=== PATIENT | female | born 1995 | race African-American/Black ===

== ENCOUNTER 2016-04-27 10:36 | Emergency (ER) | payer MEDICAID ==
[~2016-04-27 10:36] MED LIST: FERR300S PO; PREN0.01 PO
--- NOTE | 2016-04-27 11:11 | PD ---
HPI Chief Complaint Abdominal pain Date Seen: Apr 27, 2016 Time Seen: 11:06 (Kishor Bruner MD R2) Travel History International Travel<30 Days: No Contact w/Intl Traveler<30Days: No Known Affected Area: No (Kishor Bruner MD R2) History of Present Illness HPI 20 G1 at 35.4 weeks gestational age and ROSEY of 05/28/16 presents with one-day history of lower pelvic pain. She states all yesterday she had constant 6 out of 10 pelvic pain which never let up. Nonradiating. Moving makes the pain worse. This pain is constant and does not go away. Last night she was able to get some sleep, but woke up this morning with the same pain and this is why she presents to triage. Denies trauma. No dysuria. No hematuria. No nausea, vomiting, diarrhea, constipation. Her bowel movements been normal. No fever, no chills, no sick contacts. Para: 0 : 1 (Kishor Bruner MD R2) History Past Medical History Narrative Medical Anemia Medical History: Denies Significant Hx (Kishor Bruner MD R2) Obstetric History Obstetric History First (Kishor Bruner MD R2) Past Surgical History Surgical History: No Previous Surgery (Kishor Bruner MD R2) Family History Family History: Negative (Kishor Bruner MD R2) Social History Alcohol Use: No Tobacco Use: No Substance Abuse: No (Kishor Bruner MD R2) Allergies-Medications (Allergen,Severity, Reaction): Coded Allergies: No Known Allergies (Verified , 04/22/16) Home Meds Active Scripts Ferrous Sulfate Liq 300 Mg/5 Ml [id number] Mg PO DAILY #150 ML Ref 3 Prov:Cecil Campos MD R1 04/22/16 Vitamins 1 Tab PO DAILY #30 TAB Ref 1 Prov:Cecil Campos MD 10/26/15 Discontinued Scripts Ferrous Sulfate Liq 300 Mg/5 Ml [id number] Mg PO DAILY #150 ML Ref 3 Prov:Cecil Campos MD R1 04/22/16 Ferrous Sulfate Liq 300 Mg/5 Ml [id number] Mg PO DAILY #150 ML Ref 3 Prov:Cecil Campos MD 03/23/16 Physical Exam Narrative GENERAL: Well-nourished, well-developed patient. SKIN: Warm and dry. HEAD: Normocephalic and atraumatic. NECK: Supple, trachea midline. No JVD. CARDIOVASCULAR: Regular rate and rhythm without murmurs, gallops, or rubs. RESPIRATORY: Breath sounds equal bilaterally. No accessory muscle use. ABDOMEN/GI: Abdomen soft, non-tender, bowel sounds present, no rebound, no guarding Cervix: Closed, posterior, membrane intact No contractions FHT's: Category: 1 Baseline: 135 Reactive: Yes with accelerations Variability: Moderate Decels: None EXTREMITIES: No cyanosis or edema. BACK: Nontender without obvious deformity. No CVA tenderness. NEUROLOGICAL: Awake and alert. Motor and sensory grossly within normal limits. Five out of 5 muscle strength in all muscle groups. Normal speech. (Kishor Bruner MD R2) Data Data Vital Signs Reviewed: Yes (Kishor Bruner MD R2) [facility] Medical Record Reviewed: Yes Interpretation(s) 20 G1 at 35.4 presents with 1 day history of lower abdominal/pelvic pain Narrative Course / MDM 20 G1 at 35.4 presents with 1 day history of lower abdominal/pelvic pain 1. Intrauterine Category 1 tracing Continue to monitor 2. Lower abdominal/pelvic pain -Category 1 tracing -Rule out labor. No contractions on monitor. Cervix closed and posterior. -Likely round ligament pain -Obtain UA; if positive, will treat with keflex -Patient encouraged to follow up with OB provider in 48 hours to ensure resolution of symptoms. Daily kick counts -Recommend Tylenol for pain DW: Dr. Coy (Kishor Bruner MD R2) Addendum Remarks Urinalysis culture not indicated Diagnosis is musculoskeletal pain Round ligament pain I rounded on the patient. I rounded with the resident. I reviewed the resident' s assessment and plan of care for this patient. I am in agreement with the plan of care for this patient. (Meena Eldridge MD) Kishor Bruner MD R2 Apr 27, 2016 11:10 Meena Eldridge MD Apr 27, 2016 12:25
[2016-04-27 12:08] LABS: BLOOD, URINE NEG (NEG); COMMENT (UR) CULT NOT INDICATED; CULTURE IF INDICATED CULT NOT INDICATED; GLUCOSE,URINE NEG (NEG); KETONE, URINE NEG (NEG); MUCUS URINE FEW /lpf (OCC); NITRITE,URINE NEG (NEG); PH, URINE 6.5 (5.0-8.5); SQUAMOUS EPITHELIAL CELL URINE 1 /hpf (0-5); URINE COLOR YELLOW (YELLW/STRAW)
[2016-04-29] MEDS ORDERED: FERR325T PO ×2 (14:46→14:50)
[2016-04-29] MEDS ORDERED: FERR300S PO ×2 (14:46→14:50)
[2016-06-07] MEDS ORDERED: MEDR150I9 IM (10:10)
[2016-06-11] MEDS ORDERED: DEPO150I IM (11:21)
[2016-07-22] MEDS ORDERED: IBUP-232 PO (09:23)
[2016-07-22] MEDS ORDERED: DEPO150I IM (09:32)
[2016-09-14] MEDS ORDERED: TRAM50TA PO (07:58)
[2016-09-14] MEDS ORDERED: IBUP-232 PO (07:58)
== END 2016-04-27 14:04 | disposition home or self-care (01) ==
LOC: HOBED 10:36
DX: O26.93 Pregnancy related conditions, unspecified, third trimester (principal); R10.2 Pelvic and perineal pain; Z3A.35 35 weeks gestation of pregnancy
CPT/HCPCS: 59025; 81001

== ENCOUNTER 2016-05-25 22:51 | Emergency (ER) | payer MEDICAID ==
[~2016-05-25 22:51] MED LIST changes: -FERR300S PO; +FERR325T PO
--- NOTE | 2016-05-25 23:00 | PD ---
HPI Chief Complaint Contractions Date Seen: May 25, 2016 Travel History International Travel<30 Days: No Contact w/Intl Traveler<30Days: No History of Present Illness HPI Ms. Carrillo is a 20 yo G[address] Campos at an estimated 39 4/7 weeks (ROSEY 05/28/2016) who presents with lower abdominal pain. Patient reports that abdominal pain started earlier this afternoon, and gradually increased in severity. Patient describes pain as constant in nature, but intermittently worsening. Patient denies other symptoms. Patient reports minimal dysuria, chronic mild shortness of breath term . No fever or chills, no reported urgency, no nausea/vomiting, no leg asymmetry, no chest pain. Patient reports normal movement. Patient reports uncomplicated , and that she currently just takes vitamins and iron supplementation at this time. Per review of records, patient is GBS positive. Patient has history of chlamydia but had negative test of cure after treatment. Patient's last ultrasound was unremarkable. Para: 0 : 1 History Past Medical History Narrative Medical Anemia during Chlamydia-treated, [facility] negative GBS+ Obstetric History Obstetric History G1 Past Surgical History Surgical History: No Previous Surgery Family History Family History: Negative Social History Alcohol Use: No Tobacco Use: No Substance Abuse: No Allergies-Medications (Allergen,Severity, Reaction): Coded Allergies: No Known Allergies (Verified , 05/25/16) Home Meds Active Scripts Ferrous Sulfate 325 Mg [id number] Mg PO DAILY #60 TAB Ref 1 Prov:Cecil Campos MD R1 04/29/16 Multivit/Min/Fol Ac/Iron/Pren ( Vit ( Plus)) Tab1 Tab PO DAILY #30 TAB Ref 1 Prov:Cecil Campos MD R1 10/26/15 Review of Systems General / Constitutional: No: Fever, Chills HENT: No: Headaches Cardiovascular: No: Chest Pain or Discomfort Respiratory: Short of Breath (chronic during ) Gastrointestinal: No: Nausea, Vomiting Genitourinary: No: Urgency Physical Exam Heart rate 83 Blood pressure 117/64 Respiratory rate 18 Temperature 98.4 Narrative GENERAL: Well-nourished, well-developed patient. SKIN: Warm and dry. HEAD: Normocephalic and atraumatic. EYES: No scleral icterus. No injection or drainage. ENT: No nasal drainage noted. Mucous membranes pink. Airway patent. NECK: Supple, trachea midline. No JVD. CARDIOVASCULAR: Regular rate and rhythm without murmurs, gallops, or rubs. RESPIRATORY: Breath sounds equal bilaterally. No accessory muscle use. BREASTS: Bilateral exam showed no masses , no retractions, no nipple discharge. ABDOMEN/GI: Abdomen soft, non-tender, bowel sounds present, no rebound, no guarding Gravid EXTREMITIES: No cyanosis or edema. BACK: Nontender without obvious deformity. No CVA tenderness. NEUROLOGICAL: Awake and alert. Motor and sensory grossly within normal limits. Five out of 5 muscle strength in all muscle groups. Normal speech. GENITOURINARY: External Genitalia: intact and normal in appearance Cervix: Dilatation: 1 Effacement: 50% Station: -2 Presentation: V Membranes: Intact Uterine Contractions: irritability/ q2 min FHT's: Category: 1 Baseline: 150 Reactive: Y Variability: Mod Decels: None Data Data Vital Signs Reviewed: Yes [facility] Medical Record Reviewed: Yes Interpretation(s) 1 yo G[address] Campos at an estimated 39 4/7 weeks (ROSEY 05/28/2016) Assessment: -Active contractions -Cervix 1/50%/-2 -Category 1 rhythm -No concern for ROM -Benign PE Plan: -Discharge home for home monitoring of latent phase of labor -Patient counselled to return to OB ED with worsening contractions, ROM, vaginal bleeding, or other concerns Diagnosis Diagnosis: Primary Impression: Pain during labor Disposition: 01 DISCHARGE HOME Condition: Stable Patient Instructions: Abdominal Pain in (ED), Early Labor Signs (ED) Dinh Casanova MD R2 May 25, 2016 23:00
--- NOTE | 2016-05-25 23:25 | PD ---
History of Present Illness Date Seen: May 25, 2016 History of Present Illness Patient is 20-year-old black female at 39 weeks complains of contractions no bleeding or rupture the membranes. heart rate tracing is reactive and she is nicole irregularly. Her cervix is 1 cm 50% effaced -2 station she is not in active labor at this point and will be discharged home to return for increasing pain bleeding or rupture the membranes. This patient is a family practice appropriate patient and was seen by the family law legal assistant Robby Garrett II, MD May 25, 2016 23:25
[2016-05-25] MEDS ORDERED: hydrOXYzine PAMOATE 25 MG CAP PO ONE (23:30)
[2016-06-07] MEDS ORDERED: MEDR150I9 IM (10:10)
[2016-06-11] MEDS ORDERED: DEPO150I IM (11:21)
[2016-07-22] MEDS ORDERED: IBUP-232 PO (09:23)
[2016-07-22] MEDS ORDERED: DEPO150I IM (09:32)
[2016-09-14] MEDS ORDERED: IBUP-232 PO (07:58)
[2016-09-14] MEDS ORDERED: TRAM50TA PO (07:58)
== END 2016-05-26 00:17 | disposition home or self-care (01) ==
LOC: HOBED 22:51
DX: O26.93 Pregnancy related conditions, unspecified, third trimester (principal); R10.30 Lower abdominal pain, unspecified; Z3A.39 39 weeks gestation of pregnancy
CPT/HCPCS: 59025

== ENCOUNTER 2016-05-26 07:45 | Emergency (ER) | payer MEDICAID ==
--- NOTE | 2016-05-26 08:25 | PD ---
HPI Chief Complaint contractions Date Seen: May 26, 2016 Time Seen: 08:25 Travel History International Travel<30 Days: No Contact w/Intl Traveler<30Days: No Known Affected Area: No History of Present Illness HPI 20 year old G1 patient of Dr. Campos at 39/5 weeks gestation with ROSEY of 01/04. She is presenting with contractions that are occurring every 3 to 5 minutes. She rates the pain 10/10. She has no leakage of fluid. She has good movements. No vaginal bleeding. She was here last night as well, and at that time had 1 cm dilation. Compared to last night, she is more painful and uncomfortable today. She reports no significant complications in this . She takes vitamins and iron supplements. She is GBS positive. She had chlamydia in thep ast with negative test of cure after treatment. History Past Medical History Narrative Medical None Obstetric History Obstetric History Anemia during Chlamydia-treated, [facility] negative GBS+ Patient of Dr. Campos Past Surgical History Surgical History: No Previous Surgery Family History Family History: Negative Social History Alcohol Use: No Tobacco Use: No Substance Abuse: No Allergies-Medications (Allergen,Severity, Reaction): Coded Allergies: No Known Allergies (Verified , 05/25/16) Home Meds Active Scripts Ferrous Sulfate 325 Mg [id number] Mg PO DAILY #60 TAB Ref 1 Prov:Cecil Campos MD R1 04/29/16 Multivit/Min/Fol Ac/Iron/Pren ( Vit ( Plus)) Tab1 Tab PO DAILY #30 TAB Ref 1 Prov:Cecil Campos MD R1 10/26/15 Review of Systems Except as stated in HPI: all other systems reviewed are Neg Physical Exam Narrative GENERAL: Uncomfortable in bed SKIN: Warm and dry. HEAD: Normocephalic and atraumatic. EYES: No scleral icterus. No injection or drainage. ENT: No nasal drainage noted. Mucous membranes pink. Airway patent. NECK: Supple, trachea midline. No JVD. CARDIOVASCULAR: Regular rate and rhythm without murmurs, gallops, or rubs. RESPIRATORY: Breath sounds equal bilaterally. No accessory muscle use. ABDOMEN/GI: Abdomen soft, non-tender, bowel sounds present, no rebound, no guarding Gravid to 39 weeks size GENITOURINARY: External Genitalia: intact and normal in appearance Dilatation: 2-3 Effacement: 50 Station: -3 Presentation: [-] Membranes: intact Uterine Contractions: q3mins FHT's: Category: 1 Baseline: 140's Reactive: yes Variability: moderate Decels: none EXTREMITIES: No cyanosis or edema. BACK: Nontender without obvious deformity. No CVA tenderness. NEUROLOGICAL: Awake and alert. Data Data Vital Signs Reviewed: Yes [facility] Medical Record Reviewed: Yes Interpretation(s) 20 yo G1 patient of [address]. Campos at 39 5/7 weeks (ROSEY 05/28/2016) having active contractions, now 2 to 3 cm compared to 1 cm yesterday. Cervix 2-3/50%/-2 - Labor check - Hydration - Monitor EFM Discussed with Henry Alexander MD R2 May 26, 2016 08:25 Vital Signs Reviewed: Yes [facility] Medical Record Reviewed: Yes Interpretation(s) 1 yo G[address] Campos at an estimated 39 4/7 weeks (ROSEY 05/28/2016) Assessment: -Active contractions -Cervix 1/50%/-2 -Category 1 rhythm -No concern for ROM -Benign PE Plan: -Discharge home for home monitoring of latent phase of labor -Patient counselled to return to OB ED with worsening contractions, ROM, vaginal bleeding, or other concerns Diagnosis Diagnosis: Primary Impression: Pain during labor Disposition: 01 DISCHARGE HOME Condition: Stable Patient Instructions: Abdominal Pain in (ED), Early Labor Signs (ED) Dinh Casanova MD R2 May 25, 2016 23:00 <Electronically signed by Dinh Manzano MD R2 Edilberto> 05/25/16 [id number] <Electronically signed by Robby Allred II, MD> 05/26/16 1692 Allergies-Medications (Allergen,Severity, Reaction): Coded Allergies: No Known Allergies (Verified , 05/25/16) Home Meds Active Scripts Ferrous Sulfate 325 Mg [id number] Mg PO DAILY #60 TAB Ref 1 Prov:Cecil Campos MD R1 04/29/16 Multivit/Min/Fol Ac/Iron/Pren ( Vit ( Plus)) Tab1 Tab PO DAILY #30 TAB Ref 1 Prov:Cecil Campos MD R1 10/26/15 Physical Exam Narrative GENERAL: Well-nourished, well-developed patient. SKIN: Warm and dry. HEAD: Normocephalic and atraumatic. EYES: No scleral icterus. No injection or drainage. ENT: No nasal drainage noted. Mucous membranes pink. Airway patent. NECK: Supple, trachea midline. No JVD. CARDIOVASCULAR: Regular rate and rhythm without murmurs, gallops, or rubs. RESPIRATORY: Breath sounds equal bilaterally. No accessory muscle use. BREASTS: Bilateral exam showed no masses , no retractions, no nipple discharge. ABDOMEN/GI: Abdomen soft, non-tender, bowel sounds present, no rebound, no guarding Gravid to [-] weeks size Fundal Height: [-] GENITOURINARY: External Genitalia: intact and normal in appearance BUS glands: [-] Cervix: [-] Dilatation: [-] Effacement: [-] Station: [-] Presentation: [-] Membranes: [intact or ruptured] Uterine Contractions: [-] FHT's: Category: [-] Baseline: [-] Reactive: [-] Variability: [-] Decels: [-] EXTREMITIES: No cyanosis or edema. BACK: Nontender without obvious deformity. No CVA tenderness. NEUROLOGICAL: Awake and alert. Motor and sensory grossly within normal limits. Five out of 5 muscle strength in all muscle groups. Normal speech. Henry Salazar MD R2 May 26, 2016 08:25
[2016-05-26] MEDS ORDERED: MEPERIDINE HCL 50 MG/ML VIAL IM ONE (09:30)
[2016-05-26] MEDS ORDERED: PROMETHAZINE INJ 25 MG/ML VIAL IM ONE (10:00)
[2016-06-07] MEDS ORDERED: MEDR150I9 IM (10:10)
[2016-06-11] MEDS ORDERED: DEPO150I IM (11:21)
[2016-07-22] MEDS ORDERED: IBUP-232 PO (09:23)
[2016-07-22] MEDS ORDERED: DEPO150I IM (09:32)
[2016-09-14] MEDS ORDERED: IBUP-232 PO (07:58)
[2016-09-14] MEDS ORDERED: TRAM50TA PO (07:58)
== END 2016-05-26 10:17 | disposition home or self-care (01) ==
LOC: HOBED 07:45
DX: O62.9 Abnormality of forces of labor, unspecified (principal); Z3A.39 39 weeks gestation of pregnancy
CPT/HCPCS: 96372; J2175; J2550

== ENCOUNTER 2016-05-26 21:37 | Inpatient (IN) | payer MEDICAID ==
--- NOTE | 2016-05-26 22:14 | PD ---
HPI Chief Complaint "Painful CTX q 3 minutes" Date Seen: May 26, 2016 (Rolo Renteria MD R3) Travel History International Travel<30 Days: No Contact w/Intl Traveler<30Days: No (Rolo Renteria MD R3) History of Present Illness HPI 20 year old G1 patient of Dr. Campos at 39/5 weeks gestation with ROSEY of 01/04 who presents to [place] [facility] ED with c/o "painful contractions every 3 minutes." She endorses good movement and denies any loss of fluid, vaginal bleeding, foul-smelling vaginal discharge, chest pain, shortness of breath, fevers, or flank pain. She had presented yesterday evening and again this morning with similar symptoms of painful contractions. Left cervical exam was this morning and her cervix was 2-3/50%/-2. Patient was provided with reassurance, fluid hydration, and discharged to home as she was not yet in active labor. She is GBS positive. She is a history of chlamydia in the past with a reassuring test of care following treatment. (Rolo Renteria MD R3) History Past Medical History Medical History: Denies Significant Hx (Rolo Renteria MD R3) Obstetric History Obstetric History Anemia during Chlamydia-treated, [facility] negative GBS+ Patient of Dr. Campos (Rolo Renteria MD R3) Past Surgical History Surgical History: No Previous Surgery (Rolo Renteria MD R3) Family History Family History: Negative (Rolo Renteria MD R3) Social History Alcohol Use: No Tobacco Use: No Substance Abuse: No (Rolo Renteria MD R3) Allergies-Medications (Allergen,Severity, Reaction): Coded Allergies: No Known Allergies (Verified , 05/25/16) Home Meds Active Scripts Ferrous Sulfate 325 Mg [id number] Mg PO DAILY #60 TAB Ref 1 Prov:Cecil Campos MD R1 04/29/16 Multivit/Min/Fol Ac/Iron/Pren ( Vit ( Plus)) Tab1 Tab PO DAILY #30 TAB Ref 1 Prov:Cecil Campos MD R1 10/26/15 Review of Systems Except as stated in HPI: all other systems reviewed are Neg (Rolo Renteria MD R3) Physical Exam Narrative GENERAL: Uncomfortable during contractions SKIN: Warm and dry. HEAD: Normocephalic and atraumatic. EYES: No scleral icterus. No injection or drainage. ENT: No nasal drainage noted. Mucous membranes pink. Airway patent. NECK: Supple, trachea midline. CARDIOVASCULAR: Regular rate and rhythm without murmurs, gallops, or rubs. RESPIRATORY: Breath sounds equal bilaterally. No accessory muscle use. ABDOMEN/GI: Abdomen soft, non-tender, bowel sounds present, no rebound, no guarding Gravid to 39 weeks size GENITOURINARY: External Genitalia: intact and normal in appearance Dilatation: 4-5 Effacement: 90% Station: -1 Membranes: intact Uterine Contractions: q 5 minutes FHT's: Category: 1 Baseline: 145 Reactive: yes Variability: moderate Decels: none EXTREMITIES: No cyanosis or edema. BACK: Nontender without obvious deformity. No CVA tenderness. NEUROLOGICAL: Awake and alert. (Rolo Renteria MD R3) Data Data Vital Signs Reviewed: Yes (Rolo Renteria MD R3) MDM Medical Record Reviewed: Yes Plan 20 yo at 39 5/7 weeks #) IUP in active labor - Cat 1 tracing - Admit to L&D - Routine monitoring - Epidural - Will contact PCP, Dr. Farfan - Anticipate #) GBS + - Begin Pen G 5M units x1 then 2.5M units thereafter - Will delay ROM #) Hx of Chlamydia in 1st TM - s/p treatment w/ [facility]A and recent negative GC/Chlamydia in April 2016. wdw Dr. Fredrick MD (Rolo Renteria MD R3) Collaborating MD Comments Agree with the note by resident Will admit for labor (Nidhi Alcala MD) Attestation Patient discussed and I agree with plans of care. Anticipate (Nidhi Alcala MD) Rolo Renteria MD R3 May 26, 2016 22:14 Nidhi Alcala MD May 27, 2016 07:26
[2016-05-26] MEDS ORDERED: LACTATED RINGER'S 1000 ML INJ 1,000 ML IV PRN (22:24)
[2016-05-26] MEDS ORDERED: LACTATED RINGER'S 1000 ML INJ 1,000 ML IV SCH (22:24)
[2016-05-26 22:30] VITALS: RESP 18
[2016-05-26] MEDS ORDERED: ONDANSETRON HCL 4 MG/2 ML VIAL IV PRN (22:30)
[2016-05-26] MEDS ORDERED: PENICILLIN G POTASSIUM INJ 5,000,000 UNITS in SODIUM CHLORIDE 0.9% INJ 100 ML IV ONE (22:30)
[2016-05-26] MEDS ORDERED: MINERAL OIL 10 ML VIAL TOPICAL PRN (22:30)
[2016-05-26] MEDS ORDERED: CITRIC ACID-SODIUM CITRATE LIQ 30 ML UDC PO SCH (22:30)
[2016-05-26] MEDS ORDERED: OXYTOCIN 30 UNITS-500ML PREMIX 500 ML IV ONE (22:30)
[2016-05-26] MEDS ORDERED: LIDOCAINE HCL 1% 50 ML VIAL I-DERMAL PRN (22:30)
[2016-05-26] MEDS ORDERED: SODIUM CHLORID 0.9% 500 ML INJ 500 ML IV PRN (22:30)
[2016-05-26] MEDS ORDERED: LIDOCAINE HCL 1% 50 ML VIAL INFIL PRN (22:30)
[2016-05-26] MEDS ORDERED: SODIUM CHLOR 0.9% 1000 ML INJ 1,000 ML IV PRN (22:44)
[2016-05-26 23:00] VITALS: RESP 18
[2016-05-26 23:28] LABS: AUTOMATED NEUTROPHIL # 10.3 TH/MM3 (1.8-7.7); BASOPHIL # 0.1 TH/MM3 (0-0.2); BASOPHIL % 0.5 % (0.0-2.0); EOSINOPHIL % 0.1 % (0.0-4.0); HEMATOCRIT 35.8 % (35.0-46.0); LYMPH % 11.8 % (9.0-44.0); LYMPHOCYTE # 1.5 TH/MM3 (1.0-4.8); MEAN CORPUSCULAR HGB CONC 33.4 % (32.0-36.0); MONO % 6.5 % (0.0-8.0); NEUT % 81.1 % (16.0-70.0); PLATELET COUNT 213 TH/MM3 (150-450); RED BLOOD COUNT 4.11 MIL/MM3 (4.00-5.30); RED CELL DISTRIBUTION WIDTH 15.8 % (11.6-17.2); WHITE BLOOD COUNT 12.7 TH/MM3 (4.0-11.0)
[2016-05-26 23:30] VITALS: RESP 18
[2016-05-26 23:39] LABS: HEMO FLAGS AUTO DIFF
[2016-05-26 23:41] LABS: BACTERIA, URINE MOD /hpf; BLOOD, URINE SMALL (NEG); COMMENT (UR) CULTURE INDICATED; CULTURE IF INDICATED CULTURE INDICATED; GLUCOSE,URINE NEG (NEG); KETONE, URINE NEG (NEG); MUCUS URINE FEW /lpf (OCC); NITRITE,URINE NEG (NEG); SQUAMOUS EPITHELIAL CELL URINE 4 /hpf (0-5); URINE COLOR YELLOW (YELLW/STRAW)
[2016-05-26] MEDS ORDERED: fentaNYL 2MCG-BUPIV 0.125% INJ 100 ML ONE (23:42)
[2016-05-26 23:52] VITALS: BP 136/70; PULSE 106
[2016-05-26 23:55] VITALS: PULSE 108
[2016-05-26 23:58] VITALS: BP 121/73; PULSE 108
[2016-05-27] VITALS (81 sets, daily range): BP systolic 80–142; BP diastolic 54–124; PULSE 68–176; RESP 18; TEMP 97.7–98.2; O2SAT 100
[2016-05-27] MEDS ORDERED: ePHEDrine/NS 25 MG/5 ML SYR ONE (01:04)
[2016-05-27 01:14] LABS: PLATELET ESTIMATE SMEAR NORMAL (NORMAL); PLATELET MORPHOLOGY NORMAL (NORMAL); SCAN/DIFF AUTO DIFF CONFIRMED
--- NOTE | 2016-05-27 01:17 | HHI.HP ---
History & Physical H&P HPI Chief Complaint "Painful CTX q 3 minutes" Date Seen: May 26, 2016 Travel History International Travel<30 Days: No Contact w/Intl Traveler<30Days: No History of Present Illness HPI 20 year old G1 patient of Dr. Campos at 39/5 weeks gestation with ROSEY of 01/04 who presents to [place] [facility] ED with c/o "painful contractions every 3 minutes." She endorses good movement and denies any loss of fluid, vaginal bleeding, foul-smelling vaginal discharge, chest pain, shortness of breath, fevers, or flank pain. She had presented yesterday evening and again this morning with similar symptoms of painful contractions. Left cervical exam was this morning and her cervix was 2-3/50%/-2. Patient was provided with reassurance, fluid hydration, and discharged to home as she was not yet in active labor. She is GBS positive. She is a history of chlamydia in the past with a reassuring test of care following treatment. History (Limited) History Past Medical History Medical History: Denies Significant Hx Obstetric History Obstetric History Anemia during Chlamydia-treated, [facility] negative GBS+ Patient of Dr. Campos Past Surgical History Surgical History: No Previous Surgery Family History Family History: Negative Social History Alcohol Use: No Tobacco Use: No Substance Abuse: No Allergies-Medications Allergies-Medications (Allergen,Severity, Reaction): Coded Allergies: No Known Allergies (Verified , 05/25/16) Home Meds Active Scripts Ferrous Sulfate 325 Mg [id number] Mg PO DAILY #60 TAB Ref 1 Prov:Cecil Campos MD R1 04/29/16 Multivit/Min/Fol Ac/Iron/Pren ( Vit ( Plus)) Tab1 Tab PO DAILY #30 TAB Ref 1 Prov:Cecil Campos MD R1 10/26/15 ROS Review of Systems Except as stated in HPI: all other systems reviewed are Neg Physical Exam Physical Exam Narrative GENERAL: Uncomfortable during contractions SKIN: Warm and dry. HEAD: Normocephalic and atraumatic. EYES: No scleral icterus. No injection or drainage. ENT: No nasal drainage noted. Mucous membranes pink. Airway patent. NECK: Supple, trachea midline. CARDIOVASCULAR: Regular rate and rhythm without murmurs, gallops, or rubs. RESPIRATORY: Breath sounds equal bilaterally. No accessory muscle use. ABDOMEN/GI: Abdomen soft, non-tender, bowel sounds present, no rebound, no guarding Gravid to 39 weeks size GENITOURINARY: External Genitalia: intact and normal in appearance Dilatation: 4-5 Effacement: 90% Station: -1 Membranes: intact Uterine Contractions: q 5 minutes FHT's: Category: 1 Baseline: 145 Reactive: yes Variability: moderate Decels: none EXTREMITIES: No cyanosis or edema. BACK: Nontender without obvious deformity. No CVA tenderness. NEUROLOGICAL: Awake and alert. Data Data Data Vital Signs Reviewed: Yes MDM MDM Medical Record Reviewed: Yes Plan 20 yo at 39 5/7 weeks #) IUP in active labor - Cat 1 tracing - Admit to L&D - Routine monitoring - Epidural - Will contact PCPDr. Farfan - Anticipate #) GBS + - Begin Pen G 5M units x1 then 2.5M units thereafter - Will delay ROM #) Hx of Chlamydia in 1st TM - s/p treatment w/ [facility] and recent negative GC/Chlamydia in April 2016. DW: Alize Pierce MD R1 May 27, 2016 01:17
--- NOTE | 2016-05-27 01:18 | PD.LABORPN ---
Subjective Subjective Pt more comfortable after epidural placed ~midnight. Membrane spontaneously ruptured with clear fluid ~12:30am. She is continuing to progress. No acute complaints (Alize Ramos MD R1) Objective Vital Signs Vital Signs Date Time Temp Pulse Resp B/P Pulse Ox O2 Delivery O2 Flow Rate FiO2 05/27/16 01:05 83 05/27/16 01:01 96 80/64 05/27/16 01:00 94 18 05/27/16 00:55 94 05/27/16 00:50 91 05/27/16 00:45 102 05/27/16 00:45 95 107/71 05/27/16 00:45 18 05/27/16 00:40 94 05/27/16 00:35 90 05/27/16 00:30 92 104/66 05/27/16 00:30 86 05/27/16 00:25 95 05/27/16 00:21 105 105/54 05/27/16 00:20 99 05/27/16 00:19 18 05/27/16 00:15 105 05/27/16 00:15 109 119/64 05/27/16 00:14 18 05/27/16 00:10 99 109/56 05/27/16 00:10 100 05/27/16 00:05 99 05/27/16 00:05 98 117/63 05/27/16 00:00 99 05/27/16 00:00 18 05/27/16 00:00 110 126/71 05/26/16 23:58 108 121/73 05/26/16 23:55 108 05/26/16 23:52 106 136/70 05/26/16 23:30 18 05/26/16 23:00 18 05/26/16 22:30 18 Objective Pelvic Exam: Dilatation: 6 Effacement: 90 Station: -1 Presentation: breech Membranes: SROM ~12:30am Uterine Contractions: q2-5 FHT's: Category: 1 Baseline: 135 Reactive: Yes Variability: Moderate Decels: Occasional variable, Error at 1:27am (suspect not true decel and picked up mother's heart tone) Improved s/p re-positioning, will continue to monitor (Alize Ramos MD R1) Assessment/Plan Problem List: (1) GBS carrier (2) Intrauterine Assessment and Plan 20 year-old at 39/6 in active labor. GBS+ Dr. Campos is OBGYN- will deliver 1. Intrauterine -Continue routine care -Category 1 tracing -Maternal vitals wnl -S/p epidural -Anticipate vaginal delivery 2. GBS+ -Penicillin x1 given at 11:30pm. Continue 2.5k units q4h until delivery wdw: Dr. Alcala, Dr. Campos, Dr. Renteria (Alize Ramos MD R1) Attestation Agree with plan however baby position is vertex and not breech. Believe this was a mistake (Nidhi Aclala MD) Alize Ramos MD R1 May 27, 2016 01:18 Nidhi Alcala MD May 27, 2016 09:25
[2016-05-27] MEDS ORDERED: PENICILLIN G POTASSIUM INJ 2,500,000 UNITS in SODIUM CHLORIDE 0.9% INJ 100 ML IV SCH ×5 (02:00→02:30)
--- NOTE | 2016-05-27 05:20 | PD.OB.DELI ---
Delivery Date: May 27, 2016 Anesthesia: Epidural Episiotomy: None Vaginal Delivery: Normal, Spontaneous Presentation: Occiput anterior Nuchal Cord: None Delayed cord clamping (45 sec): No : Female One Minute : 8 Five Minute : 9 Weight: 2410 Care: Suctioned, Responded to stimulation Placenta: Spontaneous delivery, Intact, 3 vessel cord Laceration: No lacerations Additional Information 20 year old now vaginal delivery at 39 weeks and 6 days gestation, uncomplicated delivery, spontaneous delivery of placenta, no lacerations. ( Cecil Campos MD R1) Attestation I was present and attended the delivery of this patient with resident (Nidhi Alcala MD) Cecil Campos MD R1 May 27, 2016 05:20 Nidhi Alcala MD May 27, 2016 09:26
[2016-05-27] MEDS ORDERED: fentaNYL 2MCG-BUPIV 0.125% 100 ML EPIDURAL SCH (05:30)
[2016-05-27] MEDS ORDERED: SODIUM CHLORIDE 0.9% FLUSH 5 ML FLUSH IV PRN (05:30)
[2016-05-27] MEDS ORDERED: NO SYSTEM NARCOTICS XX PRN (05:30)
[2016-05-27] MEDS ORDERED: DO NOT ADMINISTER ANTICOAGULANTS XX PRN (05:30)
[2016-05-27] MEDS ORDERED: DOCUSATE SODIUM 50 MG/SENNA 8.6 MG TAB PO PRN (05:30)
[2016-05-27] MEDS ORDERED: WITCH HAZEL 50%/GLYCERIN 12.5% 40 PAD JAR TOPICAL PRN (05:30)
[2016-05-27] MEDS ORDERED: ZOLPIDEM TARTRATE 5 MG TAB PO PRN (05:30)
[2016-05-27] MEDS ORDERED: ONDANSETRON ODT 4 MG TAB PO PRN (05:30)
[2016-05-27] MEDS ORDERED: ePHEDrine/NS 25 MG/5 ML SYR IV PRN (05:30)
[2016-05-27] MEDS ORDERED: BENZOCAINE 20% TOPICAL SPRAY 60 ML CAN TOPICAL PRN (05:30)
[2016-05-27] MEDS ORDERED: ALUMINUM/MAGNESIUM/SIMETH 30 ML CUP PO PRN (05:30)
--- NOTE | 2016-05-27 14:04 | HHI.OB ---
Subjective Post Day: 0 Remarks Resting comfortably in bed. She states she has been ambulating well without issues. Reports a moderate amount of vaginal bleeding, no passage of clots. Reports lower abdominal pain/discomfort. No fevers, chills, shortness of breath , chest pain, urinary symptoms. She is currently formula feeding but plans to attempt . Denies breast tenderness. Objective Vitals/I&O Vital Signs Date Time Temp Pulse Resp B/P Pulse Ox O2 Delivery O2 Flow Rate FiO2 05/27/16 08:45 104 18 117/62 05/27/16 07:30 18 05/27/16 07:15 121 115/56 05/27/16 07:00 112 18 121/57 05/27/16 06:45 121 18 119/64 05/27/16 06:30 111 18 111/69 05/27/16 06:16 116 87/61 05/27/16 06:07 18 05/27/16 06:05 113 102/61 05/27/16 06:01 110 142/124 05/27/16 05:45 18 05/27/16 05:45 116 119/59 05/27/16 05:30 114 122/69 05/27/16 05:16 176 101/73 05/27/16 05:15 18 05/27/16 05:05 120 05/27/16 05:00 104 05/27/16 04:55 119 100 05/27/16 04:50 103 100 05/27/16 04:45 105 100 05/27/16 04:40 98 100 05/27/16 04:35 99 100 05/27/16 04:30 96 05/27/16 04:30 102 133/73 100 05/27/16 04:25 101 100 05/27/16 04:20 100 100 05/27/16 04:15 107 100 05/27/16 04:03 94 123/69 05/27/16 04:00 96 119/102 05/27/16 04:00 18 05/27/16 04:00 88 05/27/16 03:55 97 05/27/16 03:50 96 05/27/16 03:45 104 126/65 05/27/16 03:45 108 05/27/16 03:40 100 05/27/16 03:35 96 05/27/16 03:30 101 121/69 05/27/16 03:30 99 05/27/16 03:30 18 05/27/16 03:25 110 05/27/16 03:20 105 05/27/16 03:15 95 05/27/16 03:15 107 122/72 05/27/16 03:10 105 05/27/16 03:05 100 05/27/16 03:00 100 18 118/71 05/27/16 03:00 96 05/27/16 02:55 96 05/27/16 02:50 102 05/27/16 02:45 101 116/66 05/27/16 02:45 112 05/27/16 02:40 106 05/27/16 02:35 103 05/27/16 02:30 105 05/27/16 02:30 18 05/27/16 02:30 94 116/71 05/27/16 02:25 113 05/27/16 02:20 99 05/27/16 02:15 99 05/27/16 02:15 106 123/71 05/27/16 02:10 97 05/27/16 02:05 101 05/27/16 02:00 97.7 05/27/16 02:00 109 05/27/16 02:00 105 125/67 05/27/16 02:00 18 05/27/16 01:55 101 05/27/16 01:50 104 05/27/16 01:45 102 05/27/16 01:45 100 120/67 05/27/16 01:40 105 05/27/16 01:35 98 05/27/16 01:30 18 05/27/16 01:30 93 05/27/16 01:30 95 93/56 05/27/16 01:25 82 05/27/16 01:20 83 05/27/16 01:15 93 115/67 05/27/16 01:15 79 05/27/16 01:10 91 05/27/16 01:09 91 111/77 05/27/16 01:05 83 05/27/16 01:01 96 80/64 05/27/16 01:00 94 18 05/27/16 00:55 94 05/27/16 00:50 91 05/27/16 00:45 102 05/27/16 00:45 95 107/71 05/27/16 00:45 18 05/27/16 00:40 94 05/27/16 00:35 90 05/27/16 00:30 92 104/66 05/27/16 00:30 86 05/27/16 00:25 95 05/27/16 00:21 105 105/54 05/27/16 00:20 99 05/27/16 00:19 18 05/27/16 00:15 105 05/27/16 00:15 109 119/64 05/27/16 00:14 18 05/27/16 00:10 99 109/56 05/27/16 00:10 100 05/27/16 00:05 99 05/27/16 00:05 98 117/63 05/27/16 00:00 99 05/27/16 00:00 98.0 05/27/16 00:00 18 05/27/16 00:00 110 126/71 05/26/16 23:58 108 121/73 05/26/16 23:55 108 05/26/16 23:52 106 136/70 05/26/16 23:30 18 05/26/16 23:00 18 05/26/16 22:30 18 Objective Remarks GENERAL: Well-nourished, well-developed patient. CARDIOVASCULAR: Regular rate and rhythm without murmurs, gallops, or rubs. RESPIRATORY: Breath sounds equal bilaterally. No accessory muscle use. ABDOMEN/GI: Abdomen soft, non-tender. Fundus: Firm, non-tender at umbilicus. GENITOURINARY: Light to moderate bleeding. EXTREMITIES: No cyanosis or edema, non-tender, without signs of DVT. Medications and IVs Current Medications Medications (Trade) Dose Ordered Sig/Wagner Route Start Time Stop Time Status Last Admin Miscellaneous Information No systemic narcotics to be given except... UNSCH PRN XX 05/27/16 05:30 05/28/16 05:29 Miscellaneous Information DO NOT ADMINISTER ANY ANTICOAGUL... UNSCH PRN XX 05/27/16 05:30 05/28/16 05:29 (fentaNYL 2MCG-BUPIV 0.125% INJ) 100 ml @ 0 mls/hr TITRATE EPIDURAL 05/27/16 05:30 (ePHEDrine/NS 25 MG/5 ML SYR) 10 mg UNSCH PRN IV 05/27/16 05:30 05/28/16 05:29 (NS Flush) 2 ml BID IV 05/27/16 09:00 (NS Flush) 2 ml UNSCH PRN IV 05/27/16 05:30 (Motrin) 600 mg Q6H PRN PO 05/27/16 05:30 (Americaine 20% Top Spr) 1 spray Q4H PRN TOPICAL 05/27/16 05:30 05/27/16 10:58 (Tucks Pads) 1 applic QID PRN TOPICAL 05/27/16 05:30 05/27/16 10:58 (Lacy-Colace) 2 tab Q12H PRN PO 05/27/16 05:30 (Ambien) 5 mg HS PRN PO 05/27/16 05:30 (M-M-R Ii Inj) 0.5 ml ONCE ONCE SQ 05/27/16 16:00 05/27/16 16:01 (Boostrix Inj) 0.5 ml ONCE ONCE IM 05/27/16 16:00 05/27/16 16:01 (Mag-Al Plus Susp Liq) 15 ml Q8H PRN PO 05/27/16 05:30 (Zofran Odt) 4 mg Q6H PRN PO 05/27/16 05:30 (Tylenol 650 Mg/ 20 ml Liq) 650 mg Q4H PRN PO 05/27/16 05:30 Assessment/Plan Problem List: (1) care following vaginal delivery Plan: Snehal Carrillo is a very pleasant 20 year old now PPD#0 delivered via today 05/27. 1. Care - Encouraged OOB, as tolerated - Motrin prn pain - Advised pelvic rest x 6 weeks - Formula-feeding, plans to attempt - Contraception: Considering options, will discuss further and follow up in clinic if needed - F/u with me within 6 weeks for follow up or sooner for contraception Cecil Campos MD R1 May 27, 2016 14:04
[2016-05-27] MEDS: ACETAMINOPHEN 650 MG/20.3 ML UDC PO PRN ×2 (14:37→21:20)
[2016-05-27] MEDS ORDERED: DIPHTH/TETANUS/ACEL PERTUSSIS (BOOSTER) 0.5 ML VIAL/PFS IM ONE (16:00)
[2016-05-27] MEDS ORDERED: MEASLES, MUMPS, RUBELLA VACCINE 0.5 ML VIAL SQ ONE (16:00)
[2016-05-28] MEDS: ACETAMINOPHEN 650 MG/20.3 ML UDC PO PRN (07:50)
[2016-05-28 07:53] VITALS: BP 135/75; PULSE 91; RESP 18; TEMP 98.7
--- NOTE | 2016-05-28 08:05 | HHI.OB ---
Subjective Remarks 20 year old post- day 1 after spontaneous vaginal delivery. Doing well this morning. She is ambulating. She reports bowel movement. She is formula feeding, encouraging , education on benefits. She is undecided about control. She will follow with Dr. Campos in the clinic. Pain well controlled. Objective Vitals/I&O Vital Signs Date Time Temp Pulse Resp B/P Pulse Ox O2 Delivery O2 Flow Rate FiO2 05/28/16 07:53 98.7 91 18 135/75 05/27/16 20:15 68 18 102/75 05/27/16 20:15 98.2 05/27/16 08:45 104 18 117/62 Objective Remarks GENERAL: Well-nourished, well-developed patient. CARDIOVASCULAR: Regular rate and rhythm without murmurs, gallops, or rubs. RESPIRATORY: Breath sounds equal bilaterally. No accessory muscle use. ABDOMEN/GI: Abdomen soft, non-tender. Fundus: Firm, non-tender at umbilicus. GENITOURINARY: Light to moderate bleeding. EXTREMITIES: No cyanosis or edema, non-tender, without signs of DVT. Medications and IVs Current Medications Medications (Trade) Dose Ordered Sig/Wagner Route Start Time Stop Time Status Last Admin (fentaNYL 2MCG-BUPIV 0.125% INJ) 100 ml @ 0 mls/hr TITRATE EPIDURAL 05/27/16 05:30 (NS Flush) 2 ml BID IV 05/27/16 09:00 (NS Flush) 2 ml UNSCH PRN IV 05/27/16 05:30 (Motrin) 600 mg Q6H PRN PO 05/27/16 05:30 (Americaine 20% Top Spr) 1 spray Q4H PRN TOPICAL 05/27/16 05:30 05/27/16 10:58 (Tucks Pads) 1 applic QID PRN TOPICAL 05/27/16 05:30 05/27/16 10:58 (Lacy-Colace) 2 tab Q12H PRN PO 05/27/16 05:30 (Ambien) 5 mg HS PRN PO 05/27/16 05:30 (Mag-Al Plus Susp Liq) 15 ml Q8H PRN PO 05/27/16 05:30 (Zofran Odt) 4 mg Q6H PRN PO 05/27/16 05:30 (Tylenol 650 Mg/ 20 ml Liq) 650 mg Q4H PRN PO 05/27/16 05:30 05/28/16 07:50 Assessment/Plan Problem List: (1) care following vaginal delivery Plan: 20 year old now PPD#1 delivered via 1. Care - Encouraged OOB - Motrin prn pain - Advised pelvic rest x 6 weeks - Formula-feeding, encourage - Contraception: Considering options, will discuss further and follow up in clinic if needed - F/u with me within 6 weeks for follow up or sooner for contraception Henry Salazar MD R2 May 28, 2016 08:05
[2016-05-28] MEDS: IBUPROFEN 600 MG TAB PO PRN (16:07)
[2016-05-28 19:50] VITALS: BP 127/72; PULSE 89; RESP 18; TEMP 98.5
[2016-05-28] MEDS: SODIUM CHLORIDE 0.9% FLUSH 5 ML FLUSH IV SCH (21:00)
[2016-05-29] MEDS ORDERED: IBUP-232 PO (06:10)
[2016-05-29] MEDS ORDERED: SENN1TAB PO (06:10)
--- NOTE | 2016-05-29 06:11 | HHI.DCPOC ---
Discharge Care Plan Diagnosis: (1) Vaginal delivery Goals to Promote Your Health * To prevent worsening of your condition and complications * To maintain your health at the optimal level Directions to Meet Your Goals Take your medications as prescribed Follow your dietary instruction Follow activity as directed Keep your appointments as scheduled Take your immunizations and boosters as scheduled If your symptoms worsen call your PCP, if no PCP go to Urgent Care Center or Emergency Room Smoking is Dangerous to Your Health. Avoid second hand smoke Call the 24-hour hour crisis hotline for domestic abuse at Henry Salazar MD R2 May 29, 2016 06:11
[2016-05-29] MEDS: IBUPROFEN 600 MG TAB PO PRN (06:47)
--- NOTE | 2016-05-29 07:48 | HHI.OB ---
Subjective Post Day: 2 Remarks day #2. AFVSS overnight. Pain minimal. Decreased lochia. Denies dysuria. No breast tenderness. She is feeding the baby via formula. Discussed benefits of breast-feeding. Appetite good. No nausea or vomiting. Endorses flatus. Endorses bowel movement. Ambulating well. Denies calf pain, shortness of breath, or cough. Otherwise, she is doing well this morning and has no other complaints. (Eros Levy MD R1) Objective Vitals/I&O Vital Signs Date Time Temp Pulse Resp B/P Pulse Ox O2 Delivery O2 Flow Rate FiO2 05/28/16 19:50 98.5 89 18 127/72 05/28/16 07:53 98.7 91 18 135/75 Objective Remarks GENERAL: Well-nourished, well-developed patient. CARDIOVASCULAR: Regular rate and rhythm without murmurs, gallops, or rubs. RESPIRATORY: Breath sounds equal bilaterally. No accessory muscle use. ABDOMEN/GI: Abdomen soft, non-tender. Fundus: Firm, non-tender at umbilicus. GENITOURINARY: Light to moderate bleeding. EXTREMITIES: No cyanosis or edema, non-tender, without signs of DVT. Medications and IVs Current Medications Medications (Trade) Dose Ordered Sig/Wagner Route Start Time Stop Time Status Last Admin (fentaNYL 2MCG-BUPIV 0.125% INJ) 100 ml @ 0 mls/hr TITRATE EPIDURAL 05/27/16 05:30 (NS Flush) 2 ml BID IV 05/27/16 09:00 (NS Flush) 2 ml UNSCH PRN IV 05/27/16 05:30 (Motrin) 600 mg Q6H PRN PO 05/27/16 05:30 05/29/16 06:47 (Americaine 20% Top Spr) 1 spray Q4H PRN TOPICAL 05/27/16 05:30 05/27/16 10:58 (Tucks Pads) 1 applic QID PRN TOPICAL 05/27/16 05:30 05/27/16 10:58 (Lacy-Colace) 2 tab Q12H PRN PO 05/27/16 05:30 (Ambien) 5 mg HS PRN PO 05/27/16 05:30 (Mag-Al Plus Susp Liq) 15 ml Q8H PRN PO 05/27/16 05:30 (Zofran Odt) 4 mg Q6H PRN PO 05/27/16 05:30 (Tylenol 650 Mg/ 20 ml Liq) 650 mg Q4H PRN PO 05/27/16 05:30 05/28/16 07:50 (Eros Levy MD R1) Assessment/Plan Problem List: (1) care following vaginal delivery Plan: 20 year old now PPD#2 delivered via 1. Care - Encouraged OOB - Motrin prn pain - Advised pelvic rest x 6 weeks - Formula-feeding, encourage - Contraception: Considering options, will discuss further and follow up in clinic if needed - D/c today (Eros Levy MD R1) Attestation Will discharge home. Plans discussed with resident (Nidhi Alcala MD) Eros Levy MD R1 May 29, 2016 07:48 Nidhi Alcala MD May 29, 2016 08:59
[2016-05-29 08:32] VITALS: BP 122/57; PULSE 87; RESP 16; TEMP 98.2
[2016-05-29] MEDS: SODIUM CHLORIDE 0.9% FLUSH 5 ML FLUSH IV SCH (09:00)
[2016-06-07] MEDS ORDERED: MEDR150I9 IM (10:10)
[2016-06-11] MEDS ORDERED: DEPO150I IM (11:21)
[2016-07-22] MEDS ORDERED: IBUP-232 PO (09:23)
[2016-07-22] MEDS ORDERED: DEPO150I IM (09:32)
[2016-09-14] MEDS ORDERED: IBUP-232 PO (07:58)
[2016-09-14] MEDS ORDERED: TRAM50TA PO (07:58)
== END 2016-05-29 11:55 | disposition home or self-care (01) | DRG 775 ==
LOC: HOBED 21:37 → H2EA 22:27 → H1EA 05-27 08:36
PROVIDERS: ADMIT Obstetrics & Gynecology Obstetrics; ATTEND Obstetrics & Gynecology Obstetrics
PROC: 10E0XZZ Delivery of Products of Conception, External Approach (ICD-10-PCS; principal; 2016-05-27)
DX: O99.824 Streptococcus B carrier state complicating childbirth (principal); O76 Abnormality in fetal heart rate and rhythm complicating labor and delivery; Z37.0 Single live birth; Z3A.39 39 weeks gestation of pregnancy
CPT/HCPCS: 59025; 81001; 85025; 86900; 86901; 87086; 99285; J2175; J2540; J2550; J7120